=== PATIENT | male | born 1965 | race Caucasian/White ===

== ENCOUNTER 2024-08-26 21:52 | Emergency (ER) | payer MEDICAID, SELFPAY ==
[2024-08-26] VITALS (7 sets, daily range): BP systolic 116–148; BP diastolic 70–91; PULSE 76–89; RESP 13–22; TEMP 36.5; O2SAT 92–98; BMI 25.8
--- NOTE | 2024-08-26 21:56 | PC.NURSE ---
Dr. Jimenez at bedside
--- NOTE | 2024-08-26 22:01 | XR_ITS ---
PROCEDURE INFORMATION: Exam: XR Chest Exam date and time: 08/26/2024 10:16 PM Age: 59 years old Clinical indication: Dyspnea TECHNIQUE: Imaging protocol: Radiologic exam of the chest. Views: 1 view. COMPARISON: No relevant prior studies available. FINDINGS: Lungs: Unremarkable. No consolidation. Pleural spaces: Unremarkable. No pleural effusion. No pneumothorax. Heart/Mediastinum: Unremarkable. No cardiomegaly. Bones/joints: Unremarkable. IMPRESSION: No acute findings.
--- NOTE | 2024-08-26 22:04 | [facility].EDCP ---
Discharge Plan Disposition Patient Disposition: Home, Self-Care Condition: Good Prescriptions Prescriptions: New prednisone 50 mg tablet 50 mg PO DAILY 5 Days Qty: 5 0RF No Action metformin 1,000 mg tablet 1,000 mg PO aspirin 81 mg tablet,chewable 1 tab PO lisinopril-hydrochlorothiazide 20-25 mg tablet PO DAILY Patient Comments: TAKE ONE TABLET BY MOUTH ONCE DAILY cyclobenzaprine 10 mg tablet 10 mg PO TID PRN Patient Comments: TAKE ONE TABLET BY MOUTH THREE TIMES DAILY NEEDED atorvastatin 80 mg tablet 80 mg PO DAILY Patient Comments: TAKE ONE TABLET BY MOUTH EVERY DAY pantoprazole 40 mg tablet,delayed release (DR/EC) 40 mg PO ONCE Patient Comments: TAKE ONE TABLET BY MOUTH ONCE DAILY BEFORE a MEAL albuterol sulfate [Ventolin HFA] 90 mcg/actuation HFA aerosol inhaler inhalation Patient Comments: inhale 1 - 2 puffs by inhalation route every 4 hours as needed ezetimibe 10 mg tablet 10 mg PO DAILY Patient Comments: TAKE ONE TABLET BY MOUTH EVERY DAY Jardiance 10 mg tablet 10 mg PO DAILY Patient Comments: TAKE ONE TABLET BY MOUTH ONCE DAILY metoprolol succinate 25 mg tablet extended release 24 hr 25 mg PO DAILY Qty: 30 2RF Referrals Follow up/Referrals: Vicki Vega APRN [Primary Care Provider] - See instructions Activity Restrictions/Add. Instructions Additional Instructions/Restrictions: You were evaluated in the ER and are appropriate for discharge at this time. Avoid alcohol intake and drink plenty of water. Take the prescribed prednisone as directed once daily for 5 days. Also take your Ventolin (albuterol) inhaler 2 puffs every 4-6 hours for the next 2 days to help with shortness of breath. Make an appointment with your primary care doctor for reevaluation in a few days, also call your under sheriff for immediate reevaluation. Return to the ER with new, worsening, or otherwise concerning symptoms. Clinical Impressions Clinical Impression: Chest pain, Acute exacerbation of chronic obstructive pulmonary disease, Alcohol intoxication Print Language Print Language: Azeri Discharge ED Provider: Cheri Jimenez HPI <Cheri Jimenez MD - Last Filed: 08/26/24 22:08> General Chief Complaint: Chest Pain Stated Complaint: Chest pain since Time Seen by Provider: 08/26/24 21:53 History of Present Illness HPI narrative: Patient is a 59-year-old presented today with chest pain. He is a very poor historian and he states that his symptoms have been intermittent over the last several days since . States that over the last day its gotten worse and most pacifically is most recent episode was within the last hour. States that substernal and describes it as pressure also with radiation into his left shoulder. He also states has had increasing cough wheezing and shortness of breath. He does not have any medications at home for his known COPD continues to smoke. He also admits to drinking alcohol today. Related Data Home Medications ?Medication ?Instructions ?Recorded ?Confirmed aspirin 81 mg chewable tablet 1 tab PO 04/13/23 08/14/24 metformin 1,000 mg tablet 1,000 mg PO 04/13/23 08/14/24 lisinopril 20 tab PO DAILY 05/31/24 08/14/24 mg-hydrochlorothiazide 25 mg tablet albuterol sulfate 90 mcg/actuation inhalation 08/14/24 08/14/24 aerosol inhaler (Ventolin HFA) atorvastatin 80 mg tablet 80 mg PO DAILY 08/14/24 08/14/24 cyclobenzaprine 10 mg tablet 10 mg PO TID PRN 08/14/24 08/14/24 empagliflozin 10 mg tablet 10 mg PO DAILY 08/14/24 08/14/24 (Jardiance) ezetimibe 10 mg tablet 10 mg PO DAILY 08/14/24 08/14/24 pantoprazole 40 mg tablet,delayed 40 mg PO ONCE 08/14/24 08/14/24 release Previous Rx's ?Medication ?Instructions ?Recorded metoprolol succinate 25 mg 25 mg PO DAILY #30 tabs 08/14/24 tablet,extended release 24 hr prednisone 50 mg tablet 50 mg PO DAILY 5 days #5 tabs 08/27/24 Allergies Allergy/AdvReac Type Severity Reaction Status Date / Time No Known Allergies Allergy Verified 08/14/24 13:52 [facility] <Cheri Jimenez MD - Last Filed: 08/26/24 22:08> [facility] Disclaimer: The information contained in this section may have been updated after the patient was seen, as this information can be updated by other users. Medical History (Updated 08/26/24 @ 22:03 by Cheri Jimenez MD) Shortness of breath Atypical angina Diabetes mellitus Hyperlipidemia Tobacco dependence syndrome Left arm pain Coronary artery disease Sinus bradycardia [place] Hypertension Surgical History History of coronary artery stent placement Social History Smoking Status: Current every day smoker alcohol intake: current current occupational status: other Travel in the last 8 weeks: None <Cheri Jimenez MD - Last Filed: 08/26/24 22:08> ROS Obtained: Yes All systems reviewed & no additional complaints except as documented Physical Exam <Cheri Jimenez MD - Last Filed: 08/26/24 22:08> General General appearance: alert and other (Smell strongly of alcohol) Respiratory Respiratory exam: Present other (Diffuse expiratory wheezing no respiratory distress oxygen saturations normal on room air he is speaking in fragmented sentences and intermittently taking breaths between sentences) Cardiovascular Cardiovascular exam: Present regular rate and normal rhythm Neurological Exam Neurological exam: Present alert and oriented X3 HEART Score <Cheri Jimenez MD - Last Filed: 08/26/24 22:08> HEART Score HEART Score assessment performed?: Yes History (anamnesis): Slightly suspicious ECG: Normal Age: >65 years Risk factors: Atherosclerosis history Troponin: </= normal limit HEART Score: 4 <Corie Jay MD - Last Filed: 08/27/24 01:40> HEART Score HEART Score: 4 Critical Care <Cheri Jimenez MD - Last Filed: 08/26/24 22:08> Critical Care Time Critical Care Time: No Medical Decision Making <Cheri Jimenez MD - Last Filed: 08/26/24 22:08> Mo Inquiry Pt receiving controlled substance: No Vital Signs Vital Signs: 08/26/24 21:52 08/26/24 21:52 08/26/24 21:56 Temperature 97.7 F Temperature Source Oral Pulse Rate 89 80 Pulse Rate [Right] 87 Respiratory Rate 22 16 Blood Pressure 148/91 H Blood Pressure [Right Arm] 134/84 Blood Pressure Mean [Right Arm] 100 Blood Pressure Source [Right Arm] Automatic Cuff 02 Sat by Pulse Oximetry 98 97 Oxygen Delivery Method Room Air 08/26/24 22:00 08/26/24 22:31 08/26/24 22:32 Temperature Temperature Source Pulse Rate 76 88 Pulse Rate [Right] Respiratory Rate 13 13 Blood Pressure 134/84 121/70 Blood Pressure [Right Arm] Blood Pressure Mean [Right Arm] Blood Pressure Source [Right Arm] 02 Sat by Pulse Oximetry 98 Oxygen Delivery Method 08/26/24 23:00 08/26/24 23:30 08/27/24 00:00 Temperature Temperature Source Pulse Rate 76 78 80 Pulse Rate [Right] Respiratory Rate 19 15 22 Blood Pressure 125/80 116/79 124/78 Blood Pressure [Right Arm] Blood Pressure Mean [Right Arm] Blood Pressure Source [Right Arm] 02 Sat by Pulse Oximetry 97 92 L 93 L Oxygen Delivery Method 08/27/24 00:30 08/27/24 01:00 08/27/24 01:30 Temperature Temperature Source Pulse Rate 79 Pulse Rate [Right] Respiratory Rate 20 17 20 Blood Pressure 120/74 110/69 124/73 Blood Pressure [Right Arm] Blood Pressure Mean [Right Arm] Blood Pressure Source [Right Arm] 02 Sat by Pulse Oximetry 94 L Oxygen Delivery Method Lab Data Labs: Lab Results 08/26/24 21:47: WBC 6.9, RBC 5.15, Hgb 16.2, Hct 45.6, MCV 88.5, MCH 31.4 H, MCHC 35.5 H, RDW 13.5, Plt Count 205, MPV 7.5, Neut % (Auto) 47.9, Lymph % (Auto) 36.8, [place] % (Auto) 5.8, Eos % (Auto) 8.1, Baso % (Auto) 1.4, Neut # (Auto) 3.3, Lymph # (Auto) 2.5, [place] # (Auto) 0.4, Eos # (Auto) 0.6 H, Baso # (Auto) 0.1, D-Dimer 0.41, Sodium 134 L, Potassium 4.2, Chloride 102, Carbon Dioxide 19 L, Anion Gap 17.2 H, BUN 11, Creatinine 0.80, Estimated Creat Clear 115, Estimated GFR 99, Est GFR ( Amer) 120, Glucose 111 H, Calcium 9.0, Total Bilirubin 0.5, AST 53, ALT 44, Alkaline Phosphatase 64, Troponin I < 0.01, NT-Pro-B Natriuret Pep < 20.0, Total Protein 7.7, Albumin 4.8, Globulin 2.9, Albumin/Globulin Ratio 1.7, Plasma/Serum Alcohol 202 H, HIV 1&2 Antibody Rapid Nonreactive 08/26/24 22:05: VBG pH 7.31, VBG pCO2 40.8, VBG pO2 50.7 H, VBG HCO3 20.1 L, VBG Total CO2 21.4 L, VBG O2 Saturation 86.0 H, VBG Base Excess -6.1 L, VBG Lactic Acid 2.9 H 08/26/24 23:45: Lactate 2.0 08/27/24 00:30: Troponin I < 0.01 08/26/24 21:47 08/26/24 21:47 Response Orders (Tests/Meds): ED MEDICATIONS Discontinued Medications Generic Name Dose Route Start Last Admin Trade Name Freq PRN Reason Stop Dose Admin Albuterol/Ipratropium 3 ml 08/26/24 22:01 08/26/24 22:31 Ipratropium/Albuterol 3 Ml Neb IH 08/26/24 22:02 3 ml ONCE ONE Administration Magnesium Sulfate 2 gm in 50 mls @ 50 mls/hr 08/26/24 22:01 08/26/24 22:20 Magnesium Sulfate 2gm/50ml Premix IV 08/26/24 23:00 50 mls/hr ONCE ONE Administration Sodium Chloride 1,000 mls @ 999 mls/hr 08/26/24 22:15 08/26/24 22:20 Sod Chlor 0.9% 1000ml Bag IV 08/26/24 23:15 999 mls/hr .Q1H1M GARETH Administration Sodium Chloride 1,000 mls @ 999 mls/hr 08/26/24 23:29 08/26/24 23:49 Sod Chlor 0.9% 1000ml Bag IV 08/27/24 00:29 Not Given .Q1H1M ONE Methylprednisolone Sodium Succinate 125 mg 08/26/24 22:01 08/26/24 22:20 Methylprednisolone Sod Succ 125mg Vial IV 08/26/24 22:02 125 mg ONCE ONE Administration ORDERS Category Date Time Status CXR --portable [XR chest portable] Stat Exams 08/26/24 22:01 Completed BNP [NT Pro Brain Natriuretic Pep.] Stat Lab 08/26/24 21:47 Completed CBC w/Auto Diff [Complete Blood Count Auto Diff] Stat Lab 08/26/24 21:47 Completed CMP [Comprehensive Metabolic Panel] Stat Lab 08/26/24 21:47 Completed D-Dimer Stat Lab 08/26/24 21:47 Completed Ethanol [Ethyl Alcohol] Stat Lab 08/26/24 21:47 Completed HIV (1&2) Antibody Rapid Stat Lab 08/26/24 21:47 Completed Hep C Ab with Reflex to RNA Stat Lab 08/26/24 21:47 Received Lactic Acid Stat Lab 08/26/24 23:45 Completed Rapid PCR Covid and Flu A/B Stat Lab 08/26/24 22:02 Ordered Trop I [Troponin I] Stat Lab 08/26/24 21:47 Completed Troponin I Q3H Lab 08/27/24 00:30 Completed Troponin I Q3H Lab 08/27/24 04:15 Ordered Venous Blood Gas Stat RT 08/26/24 22:05 Completed ECG Data Tracing #1: Attestation: I reviewed this ECG and interpreted as documented below: ECG Narrative: Ventricular to 78 normal sinus rhythm no acute ischemic changes noted normal axis no conduction abnormalities MDM Narrative Medical Decision Narrative: 59-year-old with above history and physical with multiple complaints including chest discomfort this been intermittent over the last week worsening over the last day and his current episode seems to have started about an hour ago. Will require serial troponins to rule out acute coronary syndrome. EKG is nonischemic. Cannot rule out pulmonary embolism with pulmonary embolism rule out criteria will obtain a D-dimer and utilize years criteria for a cutoff of CT PE of 1.0. Patient also has increasing cough wheezing shortness of breath may have a mild COPD exacerbation will treat with nebs steroids and magnesium. ED observation order has been placed patient will be transitioned to Dr. Magui Jay at 11 PM. <Corie Jay MD - Last Filed: 08/27/24 01:40> Vital Signs Vital Signs: 08/26/24 21:52 08/26/24 21:52 08/26/24 21:56 Temperature 97.7 F Temperature Source Oral Pulse Rate 89 80 Pulse Rate [Right] 87 Respiratory Rate 22 16 Blood Pressure 148/91 H Blood Pressure [Right Arm] 134/84 Blood Pressure Mean [Right Arm] 100 Blood Pressure Source [Right Arm] Automatic Cuff 02 Sat by Pulse Oximetry 98 97 Oxygen Delivery Method Room Air 08/26/24 22:00 08/26/24 22:31 08/26/24 22:32 Temperature Temperature Source Pulse Rate 76 88 Pulse Rate [Right] Respiratory Rate 13 13 Blood Pressure 134/84 121/70 Blood Pressure [Right Arm] Blood Pressure Mean [Right Arm] Blood Pressure Source [Right Arm] 02 Sat by Pulse Oximetry 98 Oxygen Delivery Method 08/26/24 23:00 08/26/24 23:30 08/27/24 00:00 Temperature Temperature Source Pulse Rate 76 78 80 Pulse Rate [Right] Respiratory Rate 19 15 22 Blood Pressure 125/80 116/79 124/78 Blood Pressure [Right Arm] Blood Pressure Mean [Right Arm] Blood Pressure Source [Right Arm] 02 Sat by Pulse Oximetry 97 92 L 93 L Oxygen Delivery Method 08/27/24 00:30 08/27/24 01:00 08/27/24 01:30 Temperature Temperature Source Pulse Rate 79 Pulse Rate [Right] Respiratory Rate 20 17 20 Blood Pressure 120/74 110/69 124/73 Blood Pressure [Right Arm] Blood Pressure Mean [Right Arm] Blood Pressure Source [Right Arm] 02 Sat by Pulse Oximetry 94 L Oxygen Delivery Method Lab Data Labs: Lab Results 08/26/24 21:47: WBC 6.9, RBC 5.15, Hgb 16.2, Hct 45.6, MCV 88.5, MCH 31.4 H, MCHC 35.5 H, RDW 13.5, Plt Count 205, MPV 7.5, Neut % (Auto) 47.9, Lymph % (Auto) 36.8, [place] % (Auto) 5.8, Eos % (Auto) 8.1, Baso % (Auto) 1.4, Neut # (Auto) 3.3, Lymph # (Auto) 2.5, [place] # (Auto) 0.4, Eos # (Auto) 0.6 H, Baso # (Auto) 0.1, D-Dimer 0.41, Sodium 134 L, Potassium 4.2, Chloride 102, Carbon Dioxide 19 L, Anion Gap 17.2 H, BUN 11, Creatinine 0.80, Estimated Creat Clear 115, Estimated GFR 99, Est GFR ( Amer) 120, Glucose 111 H, Calcium 9.0, Total Bilirubin 0.5, AST 53, ALT 44, Alkaline Phosphatase 64, Troponin I < 0.01, NT-Pro-B Natriuret Pep < 20.0, Total Protein 7.7, Albumin 4.8, Globulin 2.9, Albumin/Globulin Ratio 1.7, Plasma/Serum Alcohol 202 H, HIV 1&2 Antibody Rapid Nonreactive 08/26/24 22:05: VBG pH 7.31, VBG pCO2 40.8, VBG pO2 50.7 H, VBG HCO3 20.1 L, VBG Total CO2 21.4 L, VBG O2 Saturation 86.0 H, VBG Base Excess -6.1 L, VBG Lactic Acid 2.9 H 08/26/24 23:45: Lactate 2.0 08/27/24 00:30: Troponin I < 0.01 Response Orders (Tests/Meds): ED MEDICATIONS Discontinued Medications Generic Name Dose Route Start Last Admin Trade Name Freq PRN Reason Stop Dose Admin Albuterol/Ipratropium 3 ml 08/26/24 22:01 08/26/24 22:31 Ipratropium/Albuterol 3 Ml Neb IH 08/26/24 22:02 3 ml ONCE ONE Administration Magnesium Sulfate 2 gm in 50 mls @ 50 mls/hr 08/26/24 22:01 08/26/24 22:20 Magnesium Sulfate 2gm/50ml Premix IV 08/26/24 23:00 50 mls/hr ONCE ONE Administration Sodium Chloride 1,000 mls @ 999 mls/hr 08/26/24 22:15 08/26/24 22:20 Sod Chlor 0.9% 1000ml Bag IV 08/26/24 23:15 999 mls/hr .Q1H1M GARETH Administration Sodium Chloride 1,000 mls @ 999 mls/hr 08/26/24 23:29 08/26/24 23:49 Sod Chlor 0.9% 1000ml Bag IV 08/27/24 00:29 Not Given .Q1H1M ONE Methylprednisolone Sodium Succinate 125 mg 08/26/24 22:01 08/26/24 22:20 Methylprednisolone Sod Succ 125mg Vial IV 08/26/24 22:02 125 mg ONCE ONE Administration ORDERS Category Date Time Status CXR --portable [XR chest portable] Stat Exams 08/26/24 22:01 Completed BNP [NT Pro Brain Natriuretic Pep.] Stat Lab 08/26/24 21:47 Completed CBC w/Auto Diff [Complete Blood Count Auto Diff] Stat Lab 08/26/24 21:47 Completed CMP [Comprehensive Metabolic Panel] Stat Lab 08/26/24 21:47 Completed D-Dimer Stat Lab 08/26/24 21:47 Completed Ethanol [Ethyl Alcohol] Stat Lab 08/26/24 21:47 Completed HIV (1&2) Antibody Rapid Stat Lab 08/26/24 21:47 Completed Hep C Ab with Reflex to RNA Stat Lab 08/26/24 21:47 Received Lactic Acid Stat Lab 08/26/24 23:45 Completed Rapid PCR Covid and Flu A/B Stat Lab 08/26/24 22:02 Ordered Trop I [Troponin I] Stat Lab 08/26/24 21:47 Completed Troponin I Q3H Lab 08/27/24 00:30 Completed Troponin I Q3H Lab 08/27/24 04:15 Ordered Venous Blood Gas Stat RT 08/26/24 22:05 Completed MDM Narrative Medical Decision Narrative: 59-year-old with above history and physical with multiple complaints including chest discomfort this been intermittent over the last week worsening over the last day and his current episode seems to have started about an hour ago. Will require serial troponins to rule out acute coronary syndrome. EKG is nonischemic. Cannot rule out pulmonary embolism with pulmonary embolism rule out criteria will obtain a D-dimer and utilize years criteria for a cutoff of CT PE of 1.0. Patient also has increasing cough wheezing shortness of breath may have a mild COPD exacerbation will treat with nebs steroids and magnesium. ED observation order has been placed patient will be transitioned to Dr. Magui Jay at 11 PM. Jay: Upon my assumption of care patient is stable and resting comfortably, he is in no respiratory distress. I agree with the assessment and plan from Dr. Jimenez. Labs were reviewed demonstrating no leukocytosis or anemia, VBG with normal pH, no findings of hypercarbia, mildly elevated lactic, patient is receiving IV fluids. CMP not acutely actionable, initial troponin undetectably low less than 0.01, BNP undetectable less than 20, D-dimer 0.41, per years criteria CTA PE not indicated. Patient is intoxicated with an EtOH of 202. Patient had been placed into ED observation at [address] Jimenez for continued monitoring and serial troponins to rule out evolving RI and preclude unnecessary admission. I continued monitoring the patient and reassessed him frequently. He continues to rest comfortably with good saturation on room air, no recurrence of symptoms. Repeat troponin also undetectably low at less than 0.01. Significantly reassuring against cardiac pathology. On reassessment patient continues to be stable and is appropriate for discharge at this time. Since patient had symptomatic improvement after DuoNeb administration, albuterol was prescribed as well as prednisone. He was instructed to follow-up with his primary care doctor and cardiology for reevaluation. Patient was given instructions on symptomatic management, follow up instructions, and return precautions for the emergency department. Patient indicated understanding and was discharged in stable condition. Total time in ED observation: 3 hours 36 minutes
--- NOTE | 2024-08-26 22:08 | PC.NURSE ---
RT notified of VBG order and blood in lab
[2024-08-26 22:10] LABS: Basophils # 0.1 K/mm3 (0-0.2); Basophils % 1.4 % (0.1-2.0); Eosinophils # 0.6 K/mm3 (0.0-0.4); Eosinophils % 8.1 % (0.1-12.0); Hematocrit 45.6 % (42.0-52.0); Hemoglobin 16.2 g/dL (14.1-18.0); Lymphocytes # 2.5 K/mm3 (0.7-4.5); Lymphocytes % 36.8 % (10-50); Mean Corpuscular HGB Conc 35.5 g/dL (31.8-35.4); Mean Corpuscular Hemoglobin 31.4 pg (27.0-31.2); Mean Corpuscular Volume 88.5 fl (80-94); Mean Platelet Volume 7.5 fl (7.4-10.4); Monocytes # 0.4 K/mm3 (0.1-1.0); Monocytes % 5.8 % (1.7-9.3); Neutrophils # 3.3 K/mm3 (1.8-7.8); Neutrophils % 47.9 % (37.0-80.0); Platelet Count 205 K/mm3 (142-424); Red Blood Count 5.15 M/mm3 (4.60-6.20); Red Cell Distribution Width 13.5 % (11.5-17.5); White Blood Count 6.9 K/mm3 (4.8-10.8)
[2024-08-26 22:16] LABS: Albumin Level 4.8 g/dl (3.5-5.0); Chloride 102 mmol/L (98-107); Sodium 134 mmol/L (136-145)
[2024-08-26 22:17] LABS: Potassium 4.2 mmoL/L (3.5-5.1)
--- NOTE | 2024-08-26 22:17 | PC.NURSE ---
Contacted MELISSA Mcguire on second floor for 125mg of Solu-Medrol, also contacted Respiratory for the Duo- Neb treatment.
[2024-08-26 22:19] LABS: Alanine Aminotransferase 44 U/L (12-78); Albumin/Globulin Ratio 1.7 (1.1-1.8); Alkaline Phosphatase 64 U/L (38-126); Anion Gap 17.2 mEq/L (5-15); Aspartate Amino Transferase 53 U/L (17-59); Bilirubin,Total 0.5 mg/dl (0.2-1.3); Blood Urea Nitrogen 11 mg/dl (9-20); Carbon Dioxide 19 mmol/L (22.0-30.0); Creatinine Clearance Estimated 115 mL/min (50-200); Estimated Glomerular Filt Rate 99 ml/min (>60); Ethyl Alcohol 202 mg/dl (0-10); GFR (African American) 120 ML/MIN (>60); Globulin 2.9 g/dL (1.3-3.2); Total Protein,Serum 7.7 g/dl (6.3-8.2)
[2024-08-26 22:20] LABS: VBG Base Excess -6.1 mmol/L (-2.4-2.3); VBG HCO3 20.1 mmol/L (23-30); VBG PCO2 40.8 mmol/L (35-51); VBG PH 7.31 mmol/L (7.31-7.41); VBG PO2 50.7 mmol/L (28-40); VBG Total CO2 21.4 mmol/L (23-27)
[2024-08-26 22:20] LABS: Glucose 111 mg/dl (74-100)
[2024-08-26] MEDS: METHYLPREDNISOLONE SOD SUCC 125MG VIAL 125 MG IV (22:20)
[2024-08-26] MEDS: 0.9 % SODIUM CHLORIDE 1000ML 1,000 ML 999 ML IV (22:20)
[2024-08-26] MEDS: MAGNESIUM SULFATE IN WATER 2 GM/50 ML PIGGYBACK IV (22:20)
[2024-08-26 22:21] LABS: Lactate Venous 2.9 mmol/L (0.4-2.0)
--- NOTE | 2024-08-26 22:22 | PC.NURSE ---
Pt refused covid flu swab, Dr. Jimenez notified of this.
[2024-08-26 22:28] LABS: NT Pro Brain Natriuretic Pep. < 20.0 pg/mL (0-125)
[2024-08-26] MEDS: IPRATROPIUM/ALBUTEROL 3 ML NEB IH (22:31)
[2024-08-26 22:33] LABS: Troponin I < 0.01 ng/ml (0.00-0.034)
[2024-08-26 22:40] LABS: D-Dimer 0.41 ug/mL (0.0-0.5)
--- NOTE | 2024-08-26 22:41 | ECG_ITS ---
APPROVED REPORT Exam: Resting ECG HR:78 bpm ECG Measurements Heart Rate 78 AXES IL 153 P 62 QRSd 93 QRS 31 QT 391 T 70 QTc 424 Conclusion SINUS RHYTHM MODERATE ST DEPRESSION [0.05+ mV ST DEPRESSION] No STEMI Electronically signed by : RAUL CARTY, 08/27/2024 06:48:41
--- NOTE | 2024-08-26 23:12 | PC.NURSE ---
pt daughter called to speak to pt at this time. pt agreeable
[2024-08-27] VITALS: BP 124/78; PULSE 80; RESP 22; O2SAT 93
[2024-08-27 00:15] LABS: HIV (1&2) Antibody Rapid NONREACTIVE (NONREACTIVE)
[2024-08-27 00:30] VITALS: BP 120/74; PULSE 79; RESP 20; O2SAT 94
[2024-08-27 01:00] VITALS: BP 110/69; RESP 17
[2024-08-27 01:30] VITALS: BP 124/73; RESP 20
[2024-08-27 01:36] LABS: Troponin I < 0.01 ng/ml (0.00-0.034)
[2024-08-27 01:37] VITALS: BP 124/73; PULSE 80; RESP 20; TEMP 36.5; O2SAT 98
--- NOTE | 2024-08-27 01:42 | PC.NURSE ---
Called pt's daughter [place] and updated on POC and that pt is being prepared for d/c. She is 45 min away and will head this way. Pt update don this information
[2024-08-27 02:22] LABS: Reflex Lactic Add Lactic Reflex
[2024-08-28 09:28] LABS: HCV Ab Non Reactive (Non Reactive)
== END 2024-08-27 02:09 | disposition home or self-care (01) ==
PROVIDERS: Emergency Medicine; Emergency Provider Student in an Organized Health Care Education/Training Program; PCP Nurse Practitioner
DX: R07.9 Chest pain, unspecified (principal); J44.1 Chronic obstructive pulmonary disease with (acute) exacerbation; F10.129 Alcohol abuse with intoxication, unspecified
CPT/HCPCS: 71045; 80053; 80320; 82803; 83605; 83880; 84484; 85025; 85378; 86803; 87389; 93005; 96361; 96365; 96375; 99285; G0480; J2919; J3475; J7030; J7620

== ENCOUNTER 2025-01-14 11:42 | Emergency (ER) | payer MEDICAID, SELFPAY ==
[2025-01-14] VITALS (9 sets, daily range): BP systolic 128–157; BP diastolic 90–106; PULSE 69–83; RESP 10–20; TEMP 36.7; O2SAT 93–99; BMI 30.7
--- NOTE | 2025-01-14 11:47 | ECG_ITS ---
APPROVED REPORT Exam: Resting ECG HR:80 bpm ECG Measurements Heart Rate 80 AXES LA 136 P 70 QRSd 94 QRS 32 QT 360 T 70 QTc 396 Conclusion SINUS RHYTHM NORMAL ECG Electronically signed by : RAUL CARTY, 01/15/2025 03:47:36
--- NOTE | 2025-01-14 11:55 | XR_ITS ---
FINAL REPORT CLINICAL HISTORY: chest pain COMPARISON: None FINDINGS: PA and lateral views of the chest are obtained. There is no prior exam for comparison. The cardiac and mediastinal silhouettes are within normal limits. The lungs are clear. There is no pleural effusion, pneumothorax, or acute osseous abnormality. IMPRESSION: No radiographic evidence of acute cardiac or pulmonary disease. Reviewed, Interpreted and Dictated by Toya Steele MD Transcribed by Briana Palacio Authenticated and [facility]
--- NOTE | 2025-01-14 12:03 | ED_ITS ---
Discharge Plan Disposition Patient Disposition: Home, Self-Care Condition: Good Prescriptions Prescriptions: No Action metformin 1,000 mg tablet 1,000 mg PO DAILY aspirin 81 mg tablet,chewable 1 tab PO DAILY lisinopril-hydrochlorothiazide 20-25 mg tablet 1 tab PO DAILY Patient Comments: TAKE ONE TABLET BY MOUTH ONCE DAILY cyclobenzaprine 10 mg tablet 10 mg PO TID PRN (Reason: Pain, Mild) Patient Comments: TAKE ONE TABLET BY MOUTH THREE TIMES DAILY NEEDED atorvastatin 80 mg tablet 80 mg PO DAILY Patient Comments: TAKE ONE TABLET BY MOUTH EVERY DAY pantoprazole 40 mg tablet,delayed release (DR/EC) 40 mg PO ONCE Patient Comments: TAKE ONE TABLET BY MOUTH ONCE DAILY BEFORE a MEAL albuterol sulfate [Ventolin HFA] 90 mcg/actuation HFA aerosol inhaler 1 puff inhalation DAILY Patient Comments: inhale 1 - 2 puffs by inhalation route every 4 hours as needed ezetimibe 10 mg tablet 10 mg PO DAILY Patient Comments: TAKE ONE TABLET BY MOUTH EVERY DAY Jardiance 10 mg tablet 10 mg PO DAILY Patient Comments: TAKE ONE TABLET BY MOUTH ONCE DAILY Referrals Follow up/Referrals: Tavo Evangelista MD [Staff Physician] - See instructions Provider,MD Jonah [Referring] - See instructions Coleman Singh MD [Staff Physician] - See instructions Activity Restrictions/Add. Instructions Additional Instructions/Restrictions: You were evaluated in the emergency department today. Your troponins are heart enzymes are negative. It is very important that you follow-up with cardiology right away for further assessment. Return to the emergency department for new or worsening symptoms. Clinical Impressions Clinical Impression: Chest pressure, Anxiety Instructions Patient Instructions: DI for Atypical Chest Pain, DI for Anxiety -- Adult Print Language Print Language: Amharic Discharge ED Provider: Darshana Tanner HPI General Chief Complaint: Chest Pain Stated Complaint: Chest Pain Time Seen by Provider: 01/14/25 11:55 Mode of Arrival: Ambulatory Source of Information: Patient Description of Symptoms (Recalled from ER Triage Doc. by RN): PT REPORTS MIDSTERNAL CHEST PRESSURE X 2 DAYS, REPORTS NUMBNESS OF LEFT ARM THAT STARTED TODAY. REPORTS SHORTNESS OF BREATH History of Present Illness HPI narrative: This patient is a 59-year-old male with a history of CAD status post stenting, hypertension, hyperlipidemia, tobacco dependence presented to the emergency department for evaluation concern for chest pressure. Patient states he has been having panic attacks for the last few days and has also developed chest pressure. He notes that he has associated shortness of breath when he is having the panic attacks. He does feel very anxious. He also developed numbness in his left arm that started early this morning. No fever, cough, congestion, abdominal pain, nausea, vomiting, back pain, or other concerns. Related Data Home Medications ?Medication ?Instructions ?Recorded ?Confirmed aspirin 81 mg chewable tablet 1 tab PO DAILY 04/13/23 01/14/25 metformin 1,000 mg tablet 1,000 mg PO DAILY 04/13/23 01/14/25 lisinopril 20 1 tab PO DAILY 05/31/24 01/14/25 mg-hydrochlorothiazide 25 mg tablet albuterol sulfate 90 mcg/actuation 1 puff inhalation DAILY 08/14/24 01/14/25 aerosol inhaler (Ventolin HFA) atorvastatin 80 mg tablet 80 mg PO DAILY 08/14/24 01/14/25 cyclobenzaprine 10 mg tablet 10 mg PO TID PRN Pain, Mild 08/14/24 01/14/25 empagliflozin 10 mg tablet 10 mg PO DAILY 08/14/24 01/14/25 (Jardiance) ezetimibe 10 mg tablet 10 mg PO DAILY 08/14/24 01/14/25 pantoprazole 40 mg tablet,delayed 40 mg PO ONCE 08/14/24 01/14/25 release Allergies Allergy/AdvReac Type Severity Reaction Status Date / Time No Known Allergies Allergy Verified 01/14/25 12:02 [facility] Disclaimer: The information contained in this section may have been updated after the patient was seen, as this information can be updated by other users. Medical History Shortness of breath Atypical angina Diabetes mellitus Hyperlipidemia Tobacco dependence syndrome Left arm pain Coronary artery disease Sinus bradycardia Lipoma Hypertension Surgical History History of coronary artery stent placement Family History Other No significant family history Social History Smoking Status: Current every day smoker alcohol intake: current current occupational status: other Travel in the last 8 weeks: None Have you lived/traveled outside [place] in past 30 days?: No Contact w/someone who lives/traveled outside [place] past 30 days?: No Exposure to someone with infectious disease in past 14 days?: No Do you have a fever (greater than 100.4 F or 38 C)?: No Have you tested positive for COVID-19: No Exposed to someone with COVID-19 in past 14 days?: No Do you have a sore throat?: No Do you have a cough?: No Do you have any weakness?: No Do you have any diarrhea?: No Are you experiencing any unusual bleeding?: No Do you have any muscle aches/pain?: No Do you have any abdominal pain?: No Are you experiencing loss of taste or smell?: No ROS Obtained: Yes All systems reviewed & no additional complaints except as documented Physical Exam General General appearance: alert and in no apparent distress Head Head exam: atraumatic and normocephalic Eye Eye exam: Present normal appearance, PERRL and EOMI ENT ENT exam: Present normal exam, normal oropharynx, mucous membranes moist and normal external ear exam Neck Neck exam: Present normal inspection, full ROM and trachea midline; Absent tenderness Chest Chest inspection: Present normal inspection and symmetric chest wall rise; Absent tenderness Respiratory Respiratory exam: Present normal lung sounds bilaterally; Absent respiratory distress, wheezes, stridor or accessory muscle use Cardiovascular Cardiovascular exam: Present regular rate and normal rhythm Abdominal Exam Abdominal exam: Present soft; Absent distention, tenderness or guarding Extremities Exam Extremities exam: Present normal inspection, full ROM and normal capillary refill; Absent tenderness or edema Back Exam Back exam: Present normal inspection and full ROM; Absent tenderness Neurological Exam Neurological exam: Present alert, oriented X3, CN II-XII intact and normal gait; Absent motor sensory deficit Psychiatric Psychiatric exam: Present normal affect and normal mood Skin Skin exam: Present warm and dry HEART Score HEART Score HEART Score assessment performed?: Yes History (anamnesis): Slightly suspicious ECG: Normal Age: 45-65 years Risk factors: Atherosclerosis history Troponin: </= normal limit HEART Score: 3 Critical Care Critical Care Time Critical Care Time: No Medical Decision Making Mo Inquiry Pt receiving controlled substance: No Vital Signs Vital Signs: 01/14/25 11:48 01/14/25 11:53 01/14/25 12:00 Temperature 98.0 F Temperature Source Oral Pulse Rate 80 83 Pulse Rate [Apical] 82 Respiratory Rate 18 10 L Blood Pressure 141/91 H Blood Pressure [Right Arm] 157/101 H Blood Pressure Mean [Right Arm] 119 Blood Pressure Source Blood Pressure Source [Right Arm] Automatic Cuff Blood Pressure Position [Right Arm] Sitting 02 Sat by Pulse Oximetry 99 93 L Oxygen Delivery Method Room Air Room Air 01/14/25 12:30 01/14/25 13:00 01/14/25 13:30 Temperature Temperature Source Pulse Rate 80 77 75 Pulse Rate [Apical] Respiratory Rate 20 13 20 Blood Pressure 141/98 H 128/90 136/93 H Blood Pressure [Right Arm] Blood Pressure Mean [Right Arm] Blood Pressure Source Blood Pressure Source [Right Arm] Blood Pressure Position [Right Arm] 02 Sat by Pulse Oximetry 94 L 94 L 96 Oxygen Delivery Method Room Air Room Air Room Air 01/14/25 14:00 01/14/25 14:30 01/14/25 15:31 Temperature 98.0 F Temperature Source Oral Pulse Rate 72 69 80 Pulse Rate [Apical] Respiratory Rate 13 14 19 Blood Pressure 145/97 H 147/106 H 144/99 H Blood Pressure [Right Arm] Blood Pressure Mean [Right Arm] Blood Pressure Source Automatic Cuff Blood Pressure Source [Right Arm] Blood Pressure Position [Right Arm] 02 Sat by Pulse Oximetry 97 97 Oxygen Delivery Method Room Air Room Air Room Air Lab Data Labs: Lab Results 01/14/25 11:50: WBC 6.6, RBC 6.10, Hgb 18.7 H, Hct 53.3 H, MCV 87.4, MCH 30.7, MCHC 35.1, RDW 13.3, Plt Count 186, MPV 9.8, Neut % (Auto) 47.3, Lymph % (Auto) 35.4, Mcdonough % (Auto) 12.0 H, Eos % (Auto) 3.6, Baso % (Auto) 1.1, Neut # (Auto) 3.1, Lymph # (Auto) 2.3, Mcdonough # (Auto) 0.8, Eos # (Auto) 0.2, Baso # (Auto) 0.1, D-Dimer 0.39, Sodium 137, Potassium 4.6, Chloride 99, Carbon Dioxide 29, Anion Gap 13.6, BUN 24 H, Creatinine 1.00, Estimated Creat Clear 97, Estimated GFR 76, Est GFR ( Amer) 93, Glucose 168 H, Calcium 10.7 H, Total Bilirubin 0.9, AST 38, ALT 45, Alkaline Phosphatase 64, Troponin I < 0.01, Total Protein 8.3 H, Albumin 5.3 H, Globulin 3.0, Albumin/Globulin Ratio 1.8, Lipase 164 01/14/25 14:40: Troponin I < 0.01 01/14/25 11:50 01/14/25 11:50 Response Orders (Tests/Meds): ED MEDICATIONS Discontinued Medications Generic Name Dose Route Start Last Admin Trade Name Freq PRN Reason Stop Dose Admin Acetaminophen 1,000 mg 01/14/25 13:45 01/14/25 13:53 Acetaminophen 500mg Tab PO 01/14/25 13:46 1,000 mg ONCE ONE Administration Aspirin 324 mg 01/14/25 11:55 01/14/25 12:06 Aspirin 81mg Chewable Tablet PO 01/14/25 11:56 324 mg ONCE ONE Administration Belladonna Alkaloids 60 ml 01/14/25 11:55 01/14/25 12:06 Belladonna Alkaloids 60 Ml Ml PO 01/14/25 11:56 60 ml ONCE ONE Administration Ketorolac Tromethamine 30 mg 01/14/25 13:45 01/14/25 13:54 Ketorolac 30mg/Ml Vial IV 01/14/25 13:46 30 mg ONCE ONE Administration Lorazepam 1 mg 01/14/25 11:55 01/14/25 12:06 Lorazepam 2mg/Ml Vial IV 01/14/25 11:56 1 mg ONCE ONE Administration Sodium Chloride 10 ml 01/14/25 11:55 Sodium Chloride 0.9% 10ml Vial IV 02/13/25 11:54 NEEDED PRN to Dilute Lorazepam inj ORDERS Category Date Time Status CXR 2 view (NOT portable) [XR chest 2V] Stat Exams 01/14/25 11:55 Completed Complete Blood Count Auto Diff Stat Lab 01/14/25 11:50 Completed Comprehensive Metabolic Panel Stat Lab 01/14/25 11:50 Completed D-Dimer Stat Lab 01/14/25 11:50 Completed Lipase Stat Lab 01/14/25 11:50 Completed Trop I [Troponin I] Stat Lab 01/14/25 11:50 Completed Troponin I Q3H Lab 01/14/25 14:40 Completed Troponin I Q3H Lab 01/14/25 18:00 Ordered ECG Data Tracing #1: Attestation: I reviewed this ECG and interpreted as documented below: ECG Narrative: Normal sinus rhythm with a ventricular rate of [address] changes concerning for ischemia. Normal axis and intervals. ECG initial impression date: 01/14/25 ECG initial impression time: 11:49 MDM Narrative Medical Decision Narrative: In summary, this patient is a 59-year-old man presenting to the Emergency Department for evaluation of chest pressure and panic attacks. Differential diagnoses considered include but are not limited to anxiety, ACS, dysrhythmia, PE, costochondritis. Ruling out the most morbid conditions drove assessment. It should be noted patient's history includes CAD, hypertension, hyperlipidemia, tobacco dependence which are not at goal therapy. This complicates all aspects of care by increasing patient's risk for morbidity. I reviewed patient's past medical records and noted prior ED evaluation with diagnosis of COPD exacerbation in the past.. On exam, the patient is lying in bed in no acute distress. He is anxious appearing, but otherwise exam is reassuring. Cardiopulmonary exam is benign with no adventitious lung sounds noted. Vitals are normal on cardiac telemetry. EKG obtained is reassuring. Cannot use PERC criteria to exclude PE given age, but he is low risk patient Wells score, so D-dimer was obtained. Workup included CBC, CMP, lipase, D-dimer, chest x-ray, EKG. He was given IV Ativan, oral aspirin, oral GI cocktail for symptomatic improvement. I independently interpreted chest x-ray prior to the radiologist read and noted no large focal consolidation, no pneumothorax. Please see their read for final interpretation. Labs were obtained that demonstrated reassuring CBC with no significant leukocytosis. He has mildly elevated hemoglobin in the setting of COPD. D- dimer is negative, so I do not feel the patient requires workup for PE. Chemistry is reassuring with mildly elevated BUN and very mildly elevated calcium, but not actionable at this time. Initial troponin negative. On reassessment, patient had no improvement after administration of interventions above. He states that he feels the same. Given this, I gave him IV Toradol and oral Tylenol. At 1345, patient was placed in ED observation status pending second troponin and reassessment of symptoms to determine whether or not the patient would be appropriate for discharge versus admission. The patient was provided serial reevaluations and cardiac monitoring while awaiting ultimate disposition. Second troponin resulted and also came back negative. Patient feeling better with normal vitals on cardiac telemetry. He states he is ready to go home. Given reassuring workup and exam, it is felt that the patient is appropriate for discharge at 1530. Total ED observation time was 1 hour 30 minutes. Strict return precautions were given as well as instructions for close outpatient follow-up with cardiology for further evaluation and management I had a [id number] visit with the patient when providing discharge instructions. The total time involved in discharging this patient was less than 30 minutes..
[2025-01-14 12:05] LABS: Basophils # 0.1 K/mm3 (0-0.2); Basophils % 1.1 % (0.1-2.0); Eosinophils # 0.2 K/mm3 (0.0-0.4); Eosinophils % 3.6 % (0.1-12.0); Hematocrit 53.3 % (42.0-52.0); Lymphocytes # 2.3 K/mm3 (0.7-4.5); Lymphocytes % 35.4 % (10-50); Mean Corpuscular HGB Conc 35.1 g/dL (31.8-35.4); Mean Corpuscular Hemoglobin 30.7 pg (27.0-31.2); Mean Corpuscular Volume 87.4 fl (80-94); Mean Platelet Volume 9.8 fl (7.4-10.4); Monocytes # 0.8 K/mm3 (0.1-1.0); Neutrophils # 3.1 K/mm3 (1.8-7.8); Neutrophils % 47.3 % (37.0-80.0); Platelet Count 186 K/mm3 (142-424); Red Cell Distribution Width 13.3 % (11.5-17.5); White Blood Count 6.6 K/mm3 (4.8-10.8)
[2025-01-14] MEDS: ASPIRIN 81MG CHEWABLE TABLET 324 MG PO (12:06)
[2025-01-14] MEDS: LORazepam 2MG/ML VIAL 1 MG IV (12:06)
[2025-01-14] MEDS: BELLADONNA ALKALOIDS 60 ML ML PO (12:06)
[2025-01-14 12:08] LABS: Alanine Aminotransferase 45 U/L (12-78); Albumin Level 5.3 g/dl (3.5-5.0); Albumin/Globulin Ratio 1.8 (1.1-1.8); Alkaline Phosphatase 64 U/L (38-126); Anion Gap 13.6 mEq/L (5-15); Aspartate Amino Transferase 38 U/L (17-59); Bilirubin,Total 0.9 mg/dl (0.2-1.3); Blood Urea Nitrogen 24 mg/dl (9-20); Calcium 10.7 mg/dl (8.4-10.2); Carbon Dioxide 29 mmol/L (22.0-30.0); Chloride 99 mmol/L (98-107); Creatinine Clearance Estimated 97 mL/min (50-200); Estimated Glomerular Filt Rate 76 ml/min (>60); GFR (African American) 93 ML/MIN (>60); Glucose 168 mg/dl (74-100); Lipase 164 U/L (23-300); Potassium 4.6 mmoL/L (3.5-5.1); Sodium 137 mmol/L (136-145); Total Protein,Serum 8.3 g/dl (6.3-8.2)
[2025-01-14 12:13] LABS: D-Dimer 0.39 ug/mL (0.0-0.5)
[2025-01-14 12:19] LABS: Hemoglobin 18.7 g/dL (14.1-18.0)
[2025-01-14 12:37] LABS: Troponin I < 0.01 ng/ml (0.00-0.034)
[2025-01-14] MEDS: ACETAMINOPHEN 500MG TAB 1000 MG PO (13:53)
[2025-01-14] MEDS: KETOROLAC 30MG/ML VIAL 30 MG IV (13:54)
[2025-01-14 15:14] LABS: Troponin I < 0.01 ng/ml (0.00-0.034)
== END 2025-01-14 15:36 | disposition home or self-care (01) ==
PROVIDERS: Emergency Provider Emergency Medicine; PCP Physician Assistant
DX: R07.9 Chest pain, unspecified (principal); R20.2 Paresthesia of skin; R06.02 Shortness of breath; F41.9 Anxiety disorder, unspecified; Z72.0 Tobacco use
CPT/HCPCS: 71046; 80053; 83690; 84484; 85025; 85378; 93005; 96374; 96375; 99284; J1885; J2060